=== PATIENT | female | born 1960 | race African-American/Black ===

== ENCOUNTER 2018-07-12 05:07 | Observation (INO) | payer MEDICARE ==
[2018-07-09 12:24] LABS: BASOPHILS % 0.3 % (0.0-1.0); EOSINOPHILS # (AUTO) 0.1 (0.0-0.4); EOSINOPHILS % 0.9 % (0.0-6.0); HEMATOCRIT 41.5 % (34.2-44.1); HEMOGLOBIN 13.1 g/dL (12.0-16.0); LYMPHOCYTES # (AUTO) 2.2 (1.0-3.2); LYMPHOCYTES % 20.6 % (18.0-39.1); MEAN CORPUSCULAR HGB CONC 31.6 g/dL (31-35); MEAN CORPUSCULAR VOLUME 72.8 fL (81-99); MONOCYTES # (AUTO) 0.7 (0.2-0.8); NEUTROPHILS # (AUTO) 7.4 (2.1-6.9); NEUTROPHILS % 70.7 % (38.7-80.0); PLATELET COUNT 385 x10e3/uL (140-360); RED CELL DISTRIBUTION WIDTH 15.9 % (11.7-14.4)
[2018-07-09 12:54] LABS: ANION GAP 13.3 mmol/L (8-16); BLOOD UREA NITROGEN 11 mg/dL (7-26); BUN/CREATININE RATIO 15 (6-25); CARBON DIOXIDE 29 mmol/L (22-29); CHLORIDE 98 mmol/L (98-107); CREATININE, SERUM 0.74 mg/dL (0.57-1.11); EST GLOMERULAR FILTRATION RATE > 60 ML/MIN (60-); GLUCOSE 92 mg/dL (74-118); POTASSIUM 3.3 mmol/L (3.5-5.1); SODIUM 137 mmol/L (136-145)
[~2018-07-12] VITALS: Ht 185.4 cm; Wt 131.1 kg
[~2018-07-12 05:07] MED LIST: DIURETIC PO; LISINOPRIL5 MG PO; METFORMIN HCL850 MG PO
--- OUTSIDE RECORDS SUMMARY | 2018-07-12 05:10 | XMS REPORT ---
[facility] Address Unknown Phone Unavailable Care Team Providers Care [place] Installer Name Role Phone Unavailable Unavailable Problems This patient has no known problems. Allergies, Adverse Reactions, Alerts This patient has no known allergies or adverse reactions. Medications This patient has no known medications. Encounters Start Date/Time End Date/Time Encounter Type Admission Type Attending [facility] Facility Care Department Encounter ID 2018-07-01 00:00:00 2018-07-01 00:00:[address] [facility] [id number] 2018-06-28 15:26:37 2018-06-28 15:26:[address] [facility] [id number] 2018-06-11 10:48:56 2018-06-11 10:48:[address] [facility] [id number] 2018-05-27 00:00:00 2018-05-27 00:00:[address] [facility] [id number] 2018-05-13 09:06:03 2018-05-13 09:06:[address] [facility] [id number] 2018-05-13 08:51:09 2018-05-13 08:51:[address] [facility] [id number] 2018-05-13 08:08:29 2018-05-13 08:08:[address] [facility] [id number] 2018-04-29 12:35:24 2018-04-29 12:35:[address] [facility] [id number] 2018-04-26 00:00:00 2018-04-26 00:00:[address] [facility] [id number] 2018-04-22 14:29:05 2018-04-22 14:29:[address] [facility] [id number] 2018-04-15 10:37:54 2018-04-15 10:37:[address] [facility] [id number] 2018-04-12 12:41:12 2018-04-12 12:41:[address] [facility] [id number] 2017-07-29 00:00:00 2017-07-29 00:00:[address] [facility] [id number] 2017-07-09 00:00:00 2017-07-09 00:00:[address] [facility] [id number] 2017-06-30 00:00:00 2017-06-30 00:00:[address] [facility] [id number] 2017-05-20 16:06:48 2017-05-20 16:06:[address] [facility] [id number] 2017-05-20 14:55:41 2017-05-20 14:55:[address] [facility] [id number] 2017-05-20 00:00:00 2017-05-20 00:00:[address] [facility] [id number] 2017-05-14 00:00:00 2017-05-14 00:00:[address] [facility] [id number] 2017-05-06 00:00:00 2017-05-06 00:00:[address] [facility] [id number] 2017-05-01 00:00:00 2017-05-01 00:00:[address] [facility] [id number] 2017-04-24 00:00:00 2017-04-24 00:00:[address] [facility] [id number] 2017-04-10 00:00:00 2017-04-10 00:00:[address] [facility] [id number] 2017-03-27 00:00:00 2017-03-27 00:00:[address] [facility] [id number] 2017-03-26 00:00:00 2017-03-26 00:00:[address] [facility] [id number] 2017-03-17 09:50:33 2017-03-17 09:50:[address] [facility] [id number] 2017-03-05 10:21:07 2017-03-05 10:21:07 Outpatient [facility] [id number] 2017-03-05 09:51:43 2017-03-05 09:51:43 Outpatient [facility] [id number] 2017-03-05 09:46:27 2017-03-05 09:46:27 Outpatient [facility] [id number] 2017-03-05 09:42:18 2017-03-05 09:42:[address] [facility] [id number] 2017-03-05 08:31:15 2017-03-05 08:31:15 Outpatient [facility] [id number] 2017-02-20 00:00:00 2017-02-20 00:00:[address] [facility] [id number] 2017-02-20 00:00:00 2017-02-20 00:00:[address] [facility] [id number] 2017-01-30 00:00:00 2017-01-30 00:00:[address] [facility] [id number] 2017-01-26 00:00:00 2017-01-26 00:00:[address] [facility] [id number] 2017-01-26 00:00:00 2017-01-26 00:00:[address] [facility] [id number] 2017-01-23 00:00:00 2017-01-23 00:00:[address] [facility] [id number] 2017-01-23 00:00:00 2017-01-23 00:00:[address] [facility] [id number] 2017-01-14 00:00:00 2017-01-14 00:00:[address] [facility] [id number] 2017-01-13 00:00:00 2017-01-13 00:00:[address] [facility] [id number]
[2018-07-12] MEDS ORDERED: DEXAMETHASONE SOD PHOS 10 MG/1 ML VIAL ONE (05:21)
[2018-07-12] MEDS ORDERED: CELECOXIB 200 MG CAP ONE (05:21)
[2018-07-12] MEDS ORDERED: GABAPENTIN 300 MG CAP ONE ×2 (05:21→05:52)
[2018-07-12] MEDS ORDERED: CEFAZOLIN SOD 2 GM/D5W 50ML 50 ML IV ONE (05:22)
[2018-07-12] MEDS ORDERED: TRANEXAMIC ACID 1,000 MG/10 ML ML ONE (06:28)
[2018-07-12] MEDS ORDERED: MUPIROCIN 2% OINT 22 GM TUBE ONE (06:28)
[2018-07-12] MEDS ORDERED: BACITRACIN 50,000 UNIT VIAL ONE (06:29)
[2018-07-12] MEDS ORDERED: MIDAZOLAM HCL 2 MG/2 ML VIAL ONE (06:40)
[2018-07-12] MEDS ORDERED: FENTANYL CITRATE/PF 100MCG/2 ML INJ ONE ×2 (06:40→08:22)
[2018-07-12] MEDS ORDERED: ROPIVACAINE 246.25 MG, EPINEPHRINE HCL 1:1000 0.5 MG, CLONIDINE HCL 0.08 MG, KETOROLAC ... INJ ONE ×5 (07:30)
[2018-07-12] MEDS ORDERED: DIPHENHYDRAMINE HCL INJ 50 MG/ML VIAL IM/IV PRN (08:15)
[2018-07-12] MEDS ORDERED: HYDROCODONE/APAP 5MG-325MG TAB PO PRN (08:15)
[2018-07-12] MEDS ORDERED: DOCUSATE SODIUM 100 MG CAP PO PRN (08:15)
[2018-07-12] MEDS ORDERED: ONDANSETRON HCL INJ 2 MG/ML VIAL IV PRN (08:15)
[2018-07-12] MEDS ORDERED: PROMETHAZINE HCL (IM) 25 MG/ML VIAL IM PRN (08:15)
[2018-07-12] MEDS ORDERED: ACETAMINOPHEN 650 MG SUPP PR PRN (08:15)
[2018-07-12] MEDS ORDERED: KETOROLAC TROMETHAMINE 30 MG/ML VIAL IV PRN (08:15)
--- NOTE | 2018-07-12 08:44 | Operative Report ---
DATE OF PROCEDURE: July 12, 2018 DIGITAL AD TRAFFICKER: Ventura Delgadillo PA-C The patient was brought to the operating room for induction of anesthesia. Throughout this case, my PA's assistance was necessary for retraction of soft tissue and positioning of the extremity. This allows for efficient and technically successful execution of the operation and is considered medically necessary. PREOPERATIVE DIAGNOSIS: Osteoarthritis, left knee. POSTOPERATIVE DIAGNOSIS: Osteoarthritis, left knee. PROCEDURE: Left total knee replacement. INDICATIONS: The patient is a 57-year-old lady with advanced osteoarthritis of her left knee. She has failed conservative management and would like to proceed with a left total knee replacement. The risks and benefits have been discussed. She states she understands and wishes to proceed. DESCRIPTION OF PROCEDURE: The patient was brought to the operating room and placed under general anesthetic. She received prophylactic antibiotics, a regional block, and tranexamic acid in the holding area. Her left lower extremity was prepped and draped in a sterile manner. A preoperative time out was performed. An anterior approach with a medial parapatellar arthrotomy was performed. Limited medial soft tissue releases were performed due to the valgus alignment. The knee was brought up into flexion with the patella everted. 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 The marginal osteophytes and meniscal remnants were removed. An extramedullary cutting guide was used to resect the proximal tibia. A Soni and Nephew posterior stabilized Legion knee system was used throughout the case. The tibial baseplate was a size #5. The central fin punch was impacted and attention was directed towards the distal femur. An intramedullary cutting guide was used to resect the distal femur in 5 degrees of valgus and rotation referencing off of a combination of landmarks, including Terrance line, the epicondylar axis and the posterior condyles. The femoral component was a size #6. Trial reductions were performed. An 11 mm posterior stabilized tibial insert provided appropriate soft tissue balancing. The patella was resurfaced with a 32 mm x 9 mm patellar button. The thickness was checked before and after and was right around 24 mm. Patellar tracking was concentric. The trial implants were then all removed. A 100 mL premixed pericapsular EDI injection was placed into the surrounding soft tissue. The knee was thoroughly irrigated with a shower-tip pulsatile lavage. The components were cemented into place using a single mix of high-viscosity Simplex cement preloaded with antibiotics. Care was taken to remove extravasated cement. The wound was further irrigated while the cement cured. The arthrotomy was then closed with interrupted #1 Ethibond. The skin was closed with subcuticular Vicryl and milka. A sterile Aquacel bandage was applied. Blood loss was minimal. All needle and sponge counts were correct. Job#: [id number] KYLIE
[2018-07-12] MEDS ORDERED: MORPHINE SULFATE INJ 4 MG/ML INJ ONE (08:53)
[2018-07-12] MEDS ORDERED: CELECOXIB 100 MG CAP PO SCH (09:00)
--- NOTE | 2018-07-12 09:32 | NUR ---
RECEIVED REPORT FROM FRANCESCA IN PACU . AWAITING FOR PT TO ARRIVE TO FLOOR
[2018-07-12 09:55] VITALS: BP 115/54
--- NOTE | 2018-07-12 09:55 | NUR ---
RECEIVED PT TO FLOOR AA0X3. PT HAS A DRESSING TO LEFT KNEE COVERED WITH SHREE WRAP. DRY AND INTACT. PT HAS A RIGHT HAND 2O WITH LR . FAMILY IS AT BEDSIDE. WILL CONTINUE TO CARE AT THIS TIME. SIDE RAILSX2, BED WHEELS LOCKED, CALL LIGHT IS WITHIN EASY REACH, INSTRUCTED TO CALL FOR ASSISTANCE IF NEEDED
--- NOTE | 2018-07-12 10:33 | NUR ---
MD PENA AWARE HE IS UNDER MEDICAL MANAGEMENT CARE .
[2018-07-12] MEDS: ASPIRIN 325 MG TAB PO SCH ×2 (10:54→17:43)
[2018-07-12] MEDS: SODIUM CHLORIDE 0.9% 1000ML 1,000 ML IV SCH ×2 (10:54→18:07)
[2018-07-12] MEDS: CELECOXIB 200 MG CAP PO SCH ×2 (10:54→17:43)
--- NOTE | 2018-07-12 11:15 | NUR ---
PT VOIDED IN BEDPAN AT THIS TIME
[2018-07-12] MEDS: ACETAMINOPHEN 1000 MG/100 ML IV SCH ×2 (12:49→17:43)
[2018-07-12] MEDS: HYDROCODONE/APAP 7.5MG-325MG 1 EA TAB PO PRN ×2 (12:50→21:05)
--- NOTE | 2018-07-12 12:51 | NUR ---
CPM MACHINE STARTED .GIVEN PAIN MED FOR COMFORT AT THIS TIME
--- NOTE | 2018-07-12 13:09 | Diagnostic Imaging Report ---
LEFT KNEE - 2 IMAGES HISTORY: Osteoarthritis, postop COMPARISON: None available. FINDINGS: Bones: No acute displaced fracture. No aggressive osseous lesion. Joints: Status post total knee arthroplasty. Soft tissues: Regional soft tissue swelling, air foci, and anterior metallic skin milka, compatible with recent surgery. IMPRESSION: Status post total knee arthroplasty. Signed by: Dr. Willy Graham D.O., M.M.M. on 07/12/2018 1:06 PM
[2018-07-12 14:35] VITALS: BP 119/62
[2018-07-12] MEDS: CEFAZOLIN SOD 1 GM/D5W 50ML 50 ML IV SCH ×2 (14:55→21:10)
[2018-07-12 17:32] VITALS: BP 119/66
[2018-07-12] MEDS: METFORMIN HCL 850 MG TAB PO SCH (17:43)
[2018-07-12] MEDS ORDERED: HYDROCHLOROTHIA25 MG PO (17:44)
[2018-07-12] MEDS ORDERED: LIDOCAINE HCL 2% LOCAL 20 ML VIAL ONE (18:24)
[2018-07-12] MEDS ORDERED: ROPIVACAINE 0.5% 5 MG/ML 30 ML SDV ONE (18:24)
[2018-07-12] MEDS ORDERED: DEXAMETHASONE SOD PHOS INJ 4 MG/ML VIAL ONE (18:43)
[2018-07-12] MEDS ORDERED: EPHEDRINE SULFATE INJ 50 MG/10 ML SYR ONE (18:43)
[2018-07-12] MEDS ORDERED: LIDOCAINE HCL 2% LOCAL INJ 5 ML SDV VIAL INJ ONE (18:43)
[2018-07-12] MEDS ORDERED: ONDANSETRON HCL INJ 2 MG/ML VIAL ONE (18:43)
[2018-07-12] MEDS ORDERED: PROPOFOL IV EMULSION 10 MG/ML 20 ML VIAL ONE (18:43)
[2018-07-12] MEDS ORDERED: SEVOFLURANE INHAL SOLN 250 ML PEN BTL ONE (18:43)
[2018-07-12 20:00] VITALS: BP 133/61
[2018-07-12 20:05] VITALS: BP 133/61
--- NOTE | 2018-07-12 20:36 | NUR ---
Pt placed on CPM machine on left lower extremity @ 50. Pt tolerating well.
[2018-07-12] MEDS ORDERED: ZOLPIDEM TARTRATE 5 MG TAB PO PRN (21:00)
[2018-07-13] VITALS: BP 158/66
[2018-07-13 04:00] VITALS: BP 152/70
[2018-07-13] MEDS: HYDROCODONE/APAP 7.5MG-325MG 1 EA TAB PO PRN (04:05)
--- NOTE | 2018-07-13 05:22 | Consultation ---
DATE OF CONSULTATION: REASON FOR CONSULTATION: Postop medical management. HISTORY OF PRESENT ILLNESS: The patient is a 57-year-old lady who is status post left total knee arthroplasty for end-stage osteoarthritis. She is doing well postoperatively with minimal pain. REVIEW OF SYSTEMS: Denies any chest pain, fever, chills, headache, nausea, vomiting, shortness of breath. PAST MEDICAL HISTORY: Significant hypertension and diabetes. MEDICATIONS: See MAR. ALLERGIES: SEE MAR. SOCIAL HISTORY: Nonsmoker, nondrinker. FAMILY HISTORY: Hypertension. PHYSICAL EXAMINATION VITALS: 98.6, blood pressure 136/74, pulse 74, sats 98%. GENERAL: She is in no apparent distress lying in bed. NECK: Supple. No lymphadenopathy. CARDIOVASCULAR: Regular rate and rhythm. LUNGS: Clear to auscultation bilaterally. ABDOMEN: Good bowel sounds. Soft and nontender. EXTREMITIES: No clubbing or cyanosis. NEUROLOGIC: Nonfocal. ASSESSMENT AND PLAN 1. Left knee pain: Continue with physical therapy. 2. Diabetes: Continue with current care and monitoring of her sugars. 3. Hypertension: Continue with her home medication. 4. Anemia: Check a CBC. Please see hospital chart for full details. Job#: [id number] KYLIE
[2018-07-13] MEDS: ACETAMINOPHEN 1000 MG/100 ML IV SCH ×2 (05:39)
[2018-07-13] MEDS: CEFAZOLIN SOD 1 GM/D5W 50ML 50 ML IV SCH (05:39)
[2018-07-13 06:12] LABS: HEMATOCRIT 33.7 % (34.2-44.1); HEMOGLOBIN 10.6 g/dL (12.0-16.0)
[2018-07-13] MEDS ORDERED: ACETAMINOPHEN 1000 MG/100 ML IV PRN (08:15)
--- NOTE | 2018-07-13 08:20 | NUR ---
patient tolerated with break fast, physical therapy in room to ambulate patient, no distress noted, rating pain 3/10
[2018-07-13] MEDS: ASPIRIN 325 MG TAB PO SCH (08:26)
[2018-07-13] MEDS: CELECOXIB 200 MG CAP PO SCH (08:26)
[2018-07-13] MEDS: METFORMIN HCL 850 MG TAB PO SCH (08:27)
[2018-07-13] MEDS ORDERED: NON-FORMULARY MEDICATION (Lisinopril 5 MG) PO SCH (09:00)
[2018-07-13] MEDS ORDERED: HYDROCHLOROTHIAZIDE 25 MG TAB PO SCH (09:00)
[2018-07-13] MEDS ORDERED: LISINOPRIL 2.5 MG TAB PO SCH (09:00)
[2018-07-13 09:02] VITALS: BP 148/74
[2018-07-13] MEDS ORDERED: ASPIRIN325 MG PO (10:19)
--- NOTE | 2018-07-13 10:32 | NUR ---
CM MET WITH PT IN ROOM PT LIVES WITH HER IN A HOUSE IN [place] PT WORKS [employer] FOR [place] [facility] PLANS PRE-ARRANGED BY KEV AT DR ROIS'S OFFICE FOLLOWS: PH- HOME HEALTH AND P.T. WITH [facility] PHONE: [phone] CM SPOKE WITH SOCORRO NATALIA WHO CONFIRMS THAT SHE HAS ORDERS ON PT AND WILL START SERVICES ON 07/14 CLINICALS FAXED TO [phone]; CONFIRMATION REC'D MEDICAL EQUIPMENT DELIVERED TO PT'S ROOM THIS AM BY [employer]: WALKER WITH WHEELS, CPM MACHINE AND 3 IN 1 COMMODE GALA EXPLAINED, SIGNED AND ON CHART COPY TO PT CHOICE LETTER SIGNED AND ON CHART COPY TO PT GAVE PT MY CARD FOR QUESTIONS/CONCERNS
[2018-07-13 11:14] VITALS: BP 148/74
[2018-07-13] MEDS ORDERED: NORCO 7.5-3251 EACH PO (12:39)
[2018-07-13 12:46] VITALS: BP 126/64
--- NOTE | 2018-07-13 13:10 | NUR ---
patient discharged home, prescription given, IV canula removed with tip intact, no redness or swelling noted, patient got all belongings with her, aware about f/up appointment, transported via wheelchair to [facility], no distress noted, in room giving her ride
== END 2018-07-13 13:10 | disposition home health service (06) ==
LOC: OR 05:07 → EDBD 07:00 → PACU V 08:09 → MED/SURG 10:26
PROVIDERS: ADMIT Specialist; ATTEND Specialist
DX: M17.12 Unilateral primary osteoarthritis, left knee (principal); E11.9 Type 2 diabetes mellitus without complications; I10 Essential (primary) hypertension; Z79.84 Long term (current) use of oral hypoglycemic drugs; E66.01 Morbid (severe) obesity due to excess calories; Z68.38 Body mass index [BMI] 38.0-38.9, adult; Z72.0 Tobacco use; Z82.49 Family history of ischemic heart disease and other diseases of the circulatory system; E78.5 Hyperlipidemia, unspecified; D64.9 Anemia, unspecified; Z01.812 Encounter for preprocedural laboratory examination
CPT/HCPCS: 27447; 36415 ×3; 73560; 80048; 82948 ×2; 84132; 85014; 85018; 85025; 86850; 86900; 86920 ×2; 97116 ×2; 97161; 97530; C1713; G0378 ×2; G8978; G8979; J0131; J0171; J0690 ×3; J1100 ×2; J1885 ×2; J2001 ×2; J2250; J2270; J2405; J2704; J2795; J7030